=== PATIENT | female | born 1940 | race Caucasian/White ===

== ENCOUNTER 2018-08-17 15:01 | Inpatient (IN) ==
[2018-08-17] MEDS ORDERED: Ampicillin/Sulbactam 1,500 MG in 0.9 % Sodium Chloride Mini Bag 100 ML IVPB ONE (15:34)
[2018-08-17] MEDS ORDERED: Tdap (Boostrix) Vaccine 0.5 ML SYRINGE IM ONE (15:35)
[2018-08-17] MEDS ORDERED: Acetaminophen 325 MG TABLET PO ONE (16:24)
--- NOTE | 2018-08-17 16:29 | Emergency Department Note ---
Disposition Clinical Impression: Cat bite Qualifiers: Encounter type: initial encounter Qualified Code(s): W55.01XA - Bitten by cat, initial encounter Cellulitis Qualifiers: Site of cellulitis: extremity Site of cellulitis of extremity: upper extremity Laterality: left Qualified Code(s): L03.114 - Cellulitis of left upper limb Disposition: Admitted As Inpatient Condition: Fair Time of Disposition: 17:30 General Adult HPI - General Chief complaint: ED Animal Bite Stated complaint: animal bite Time Seen by Provider: 08/17/18 15:23 Source: patient Mode of arrival: ambulatory Limitations: no limitations Nursing Notes Reviewed: Yes Vital Signs Reviewed: Yes - History of Present Illness HPI Narrative: 77-year-old female with significant past medical history insulin-dependent diabetes presenting to the emergency department after a cat scratch to her left hand. Patient states she brought a stray cat in to her home because she was concerned about the Possibly dying outside in the cold and the cat scratched her left hand. She went to an urgent care and they prescribed her doxycycline. She finished this medication yesterday but her hand remains red, swollen and tender to touch. Patient is also having active drainage from the site. Patient denies any fevers, chest pain, shortness of breath or abdominal pain with the symptoms. Pain Scale: 5 - Related Data Allergies Allergy/AdvReac Type Severity Reaction Status Date / Time lisinopril AdvReac Cough Verified 06/08/15 08:14 All systems ED: reviewed and negative except as stated. Constitutional: Denies: fever, chills Eyes: Reports: as per HPI ENT ED: Reports: as per HPI Cardiovascular: Denies: chest pain Respiratory: Reports: as per HPI Gastrointestinal: Denies: abdominal pain, nausea, vomiting Genitourinary: Reports: as per HPI Musculoskeletal: Reports: as per HPI Integumentary: Reports: abrasion Neurological: Reports: as per HPI Psychiatric: Reports: as per HPI Endocrine: Reports: as per HPI Hematological/Lymphatic: Reports: as per HPI Allergic/Immunologic: Reports: as per HPI Past Medical History - Past Medical History Attestation: Yes The following information was validated with the patient. Medical history: Reports: arthritis, CVA, diabetes, GERD, hyperlipidemia Psychiatric history: Reports: no psych history - Social History Smoking Status: Never smoker Alcohol use: Reports: none Drug use: Reports: none Physical Exam - General Limitations: no limitations General appearance: alert, in no apparent distress - Head Head exam: atraumatic, normocephalic, normal inspection - Eye Eye exam: Absent: scleral icterus - ENT ENT exam: mucous membranes moist - Neck Neck exam: Present: full ROM - Chest Chest inspection: Present: symmetric chest wall rise - Respiratory Respiratory exam: Present: normal lung sounds bilaterally. Absent: respiratory distress, wheezes - Cardiovascular Cardiovascular exam: Present: regular rate, normal rhythm, normal heart sounds - Abdominal Exam Abdominal exam: Present: soft, Non-Tender. Absent: distention, guarding, rebound - Extremities Exam Extremities exam: Present: full ROM, other (Redness, warmth or swelling noted to the dorsum aspect of the left hand. 2 open areas with one actively draining pus. Tenderness to palpation.) - Neurological Exam Neurological exam: Present: alert, oriented X3 - Psychiatric Psychiatric exam: Present: normal affect, normal mood - Skin Skin exam: Present: warm Course Course Narrative: 77-year-old female presenting with chief complaint of cat bite on left hand. In the room patient is alert and oriented 3 and hemodynamically stable. Afebrile. Left hand on the dorsum does show redness, swelling and pus. Concern is the patient did fail outpatient antibiotics. At this time will obtain basic labs, blood cultures and x-ray of the hand and provide her with IV Unasyn. Disposition most likely admission but pending results. Patient agrees with this plan. - Reevaluation(s) Reevaluation #1: Patient's laboratory analysis shows mild worsening kidney function but otherwise unchanged from baseline. Patient remains alert and oriented x 3 and hemodynamically stable in the room. At this time we will plan for admission for IV antibiotics.Xray shows soft tissue swelling but no concern for osteomyelitis. I spoke with the hospitalist media professional who agrees to accept the patient at this time. Vital Signs Temperature 98.4 F 08/17/18 15:13 Pulse Rate 88 08/17/18 15:13 Respiratory Rate 14 08/17/18 15:13 Blood Pressure 172/76 08/17/18 15:13 O2 Sat by Pulse Oximetry 97 08/17/18 15:13 Temperature 98.0 F 08/17/18 20:04 Pulse Rate 87 08/17/18 20:04 Respiratory Rate 15 08/17/18 20:04 Blood Pressure 155/79 08/17/18 20:04 O2 Sat by Pulse Oximetry 94 08/17/18 20:04 Oxygen Delivery Oxygen Delivery Room Air Medical Decision Making - Lab Data Result diagrams: 08/17/18 16:00 08/17/18 16:00 Lab Results 08/17/18 08/17/18 Range/Units 16:00 16:00 WBC 9.6 (4.3-11.1) K/mcL RBC 3.23 L (3.82-4.97) M/mcL Hgb 9.2 L (11.5-15.4) g/dL Hct 29.2 L (35.3-44.9) % MCV 90.4 (83.0-100.0) fL MCH 28.5 (28.0-33.3) pg MCHC 31.5 L (31.6-35.5) g/dL RDW 15.5 H (11.5-14.5) % Plt Count 291 (140-400) K/mcL MPV 9.6 (9.4-12.4) fL Immature Gran % 0.3 (0-4) % Seg Neutrophils % 55.7 % Lymphocytes % 20.6 % Monocytes % 13.4 % Eosinophils % 8.1 % Basophils % 1.9 % Neutrophils # 5.3 (1.6-8.9) K/mcL Lymphocytes # 2.0 (0.6-4.6) K/mcL Monocytes # 1.3 (0.0-1.3) K/mcL Eosinophils # 0.8 H (0.0-0.6) K/mcL Basophils # 0.2 (0.0-0.2) K/mcL Sodium 135 L (136-145) mEq/L Potassium 4.2 (3.5-5.1) mEq/L Chloride 104 (98-107) mEq/L Carbon Dioxide 25 (23-29) mEq/L BUN 14 (8-23) mg/dL Creatinine 1.25 H (0.60-1.20) mg/dL Est GFR ( Amer) 50 L (> 60) Est GFR (Non-Af Amer) 42 L (> 60) BUN/Creatinine Ratio 11 (6-26) Glucose 220 H (70-105) mg/dL Calculated Osmolality 287 (280-300) Calcium 9.2 (8.6-10.3) mg/dL Attestation Statement - Attestation Attestation: I, Marv Luque, examined this patient and my medical decision-making was reviewed with the RN PATIENT SERVICES/PA/Advanced Practice Nurse/Resident Physician. I agree with the documented findings, disposition and treatment plan as described except to the extent set forth below. 77-year-old female presents emergency Department with concerns of pain to the left hand. Patient states she tried taking and a stray cat, it bit her. She started having increased swelling and pain to the hand. She took a course of outpatient antibiotics and it improved slightly but did not resolve. She presents for further evaluation. Patient was started on Unasyn in the emergency department and felt comfortable with the plan for admission to the hospital. Dr. Coelho was consulted regarding the patient's case presentation.
[2018-08-17 16:38] LABS: Basophils # 0.2 K/mcL (0.0-0.2); Basophils % 1.9 %; Eosinophils # 0.8 K/mcL (0.0-0.6); Eosinophils % 8.1 %; Hematocrit 29.2 % (35.3-44.9); Hemoglobin 9.2 g/dL (11.5-15.4); Immature Granulocytes % 0.3 % (0-4); Lymphocytes % 20.6 %; Mean Corpuscular HGB Conc 31.5 g/dL (31.6-35.5); Mean Corpuscular Hemoglobin 28.5 pg (28.0-33.3); Mean Corpuscular Volume 90.4 fL (83.0-100.0); Mean Platelet Volume 9.6 fL (9.4-12.4); Monocytes # 1.3 K/mcL (0.0-1.3); Monocytes % 13.4 %; Neutrophils # 5.3 K/mcL (1.6-8.9); Platelet Count 291 K/mcL (140-400); Red Blood Count 3.23 M/mcL (3.82-4.97); Red Cell Distribution Width 15.5 % (11.5-14.5); Segmented Neutrophils % 55.7 %
[2018-08-17 16:59] LABS: Calcium 9.2 mg/dL (8.6-10.3); Potassium 4.2 mEq/L (3.5-5.1)
--- NOTE | 2018-08-17 17:23 | Internal Med History&Physical ---
<Tommy Bennett Claritza - Last Filed: 08/17/18 19:02> Date of Encounter: 08/17/18 Internal Medicine - H&P: HPI History of present illness: Ms. Casper is a 77 year old female Past Med Surg Social Fam HX - Family History Mother Adopted: No Hx Family Endocrine Disorder: Yes (DM) Internal Medicine - H&P: Meds Allergy/AdvReac Type Severity Reaction Status Date / Time lisinopril AdvReac Cough Verified 06/08/15 08:14 All Systems PM: A 10-system review of systems was performed and is negative for pertinent findings except as documented above in the HPI. - Constitutional Vitals: Temp Pulse Resp BP Pulse Ox 98.4 F 88 14 148/56 97 08/17/18 15:13 08/17/18 15:13 08/17/18 15:13 08/17/18 16:29 08/17/18 15:13 Internal Med - H&P Results - Labs CBC & Chem 7: 08/17/18 16:00 08/17/18 16:00 Labs: Short CBC 08/17/18 Range/Units 16:00 WBC 9.6 (4.3-11.1) K/mcL Hgb 9.2 L (11.5-15.4) g/dL Hct 29.2 L (35.3-44.9) % Plt Count 291 (140-400) K/mcL Neutrophils # 5.3 (1.6-8.9) K/mcL BMP 08/17/18 16:00 Sodium 135 L Potassium 4.2 Chloride 104 Carbon Dioxide 25 BUN 14 Creatinine 1.25 H Glucose 220 H Calcium 9.2 - Impressions ITS Impressions Hand X-Ray 08/17/18 15:54 IMPRESSION: Osteoarthrosis. Mild soft tissue swelling. D/ / Amy Turcios MD / Amy Turcios MD Interpreting Provider: Amy Turcios MD - Assessment and plan (1) Cellulitis Current Visit: Yes Status: Acute Qualifiers: Site of cellulitis: extremity Site of cellulitis of extremity: upper extremity Laterality: left Qualified Code(s): L03.114 - Cellulitis of left upper limb (2) Cat bite Current Visit: Yes Status: Acute Qualifiers: Encounter type: initial encounter Qualified Code(s): W55.01XA - Bitten by cat, initial encounter (3) Cat scratch of hand Current Visit: Yes Status: Acute Qualifiers: Encounter type: initial encounter Laterality: left Qualified Code(s): S60.512A - Abrasion of left hand, initial encounter; W55.03XA - Scratched by cat, initial encounter (4) Diabetes Current Visit: Yes Status: Chronic Qualifiers: Diabetes mellitus type: type 2 Diabetes mellitus usp insulin use: with rn long term care use Diabetes mellitus complication status: with hyperglycemia Qualified Code(s): E11.65 - Type 2 diabetes mellitus with hyperglycemia; Z79.4 - [facility] (current) use of insulin - Time Spent With Patient Total time spent is greater than 50% in coordination of care (as documented) at patient's floor/unit and/or counseling patient: - Attending Attestation I examined this patient and my medical decision-making was reviewed with the Resident Physician on 08/17/18. I agree with the documented findings, disposition and treatment plan as described except to the extent set forth below. Ms Casper is a 77 y/o female with hx of DM presented with swelling and drainage L hand. Recent cat scratch. Completed 10 days of Doxycycline. Exam Alert comfortable Mucus membranes dry Heart reg No wheeze abd soft L hand with erythema and drainage. I/P 1. Cellulitis L hand - Unasyn. One dose Vanc 2. DM Further diagnoses and plan as above. <Quincy Howell - Last Filed: 08/17/18 19:41> Date of Encounter: 08/17/18 Time of Encounter: 17:22 Internal Medicine - H&P: HPI Chief complaint: Cat scratch Admitted From: Emergency Dept Plans for Post Hospital Care: Home History of present illness: Ms. Casper is a 77 year old female with past medical history of CVA, diabetes, GERD, hyperlipidemia, anemia, pulmonary fibrosis. She presents the emergency room with complaint of a wound on her left hand. Patient states that on 08/06/18 she was trying to bring a stray cat inside to protect it from the cold and was subsequently scratched. Scratched on the left dorsum of the hand. Patient states she went to urgent care the next day and received a course of doxycycline and completed a 10 day course. Patient states that this did help some of the erythema however she has continued to notice some erythema, purulent drainage, foul smell. She denies any symptoms of fevers, chills, nausea, vomiting, chest pain, shortness of breath, weakness, numbness, tingling. She is able to move her hand and make a fist. She reportedly previously had some swelling in her digits as well as erythema extending from her fingers to her wrist however this is improved since taking the doxycycline. She has been taking Tylenol for her pain with good relief. Upon presentation to the emergency room, vital signs were significant for a bloo d pressure 172/76 which was repeated improved to 148/56. History obtained and showed no evidence of leukocytosis at 9.6, baseline anemia at 9.2 hemoglobin, sodium 135, BUN/creatinine/creatinine of 14/1.25 which is near baseline. X-ray of the head was obtained and shows soft tissue swelling with osteoarthrosis. She was given a dose of Unasyn and a tetanus shot. Blood cultures were obtained Past medical history as above Past surgical history: Denies Social history: Never smoker, denies alcohol or drug use Family history: Noncontributory Past Med Surg Social Fam HX - Past Medical History Medical history: arthritis, CVA, diabetes, GERD, hyperlipidemia Additional medical history: watermelon stomach,hiatial hernia,gastritis,iron def anemia,pulmonary fibrosis Psychiatric history: no psych history - Past Surgical History Additional surgical history: knee replacement,hysterectomy,tips procedure, - Social History Smoking Status: Never smoker Alcohol use: none Drug use: none All Systems PM: A 10-system review of systems was performed and is negative for pertinent findings except as documented above in the HPI. Review of systems: - Constitutional: Denies fevers, chills, weight loss, generalized fatigue - CVS: Chronic edema Denies chest pain, palpitations, ZACARIAS, - Pulm: Denies SOB, cough, sputum, wheezing - GI: Denies abdominal pain, anorexia, nausea, vomiting, diarrhea, constipation, melena - : Denies dysuria, increased frequency, urgency, hematuria, - MSK: some hand pain. Denies joint pain, limited ROM - Skin: Admits to left dorsum hand erythemaDenies rashes, ulcers, color changes, - Neuro: Denies GUAJARDO, paresthesias, focal deficits, ataxia - Constitutional Vitals: Temp Pulse Resp BP Pulse Ox 98.4 F 88 14 148/56 97 08/17/18 15:13 08/17/18 15:13 08/17/18 15:13 08/17/18 16:29 08/17/18 15:13 Exam: Gen.: Vitals noted. No acute distress. AAOx3, resting comfortably in bed. HEENT: PERRL/EOMI, oropharynx clear, Normocephalic, atraumatic, MMM Cardiac: RRR, subtle systolic murmur, +S1/S2, 3+ pitting BLE edema Pulmonary: CTA bilaterally, no wheezes, rales or rhonchi, equal chest expansion, unlabored breathing Abdomen: soft, nontender, BS noted, no guarding, no palpable HSM Skin: warm and dry, left hand with dorsum showing erythema with 2 puncture wounds. Purulent drainage present in one of the wounds. No proximal spreading. Distal pulses and sensation intact. MSK: ROM intact, no joint swelling noted, gait no assessed while in bed. Non tender calf or clubbing Neuro: A&Ox3, moves all extremities, no focal deficits, sensation intact Psych: Appropriate mood and behavior, AOx3 Internal Med - H&P Results - Labs CBC & Chem 7: 08/17/18 16:00 08/17/18 16:00 Labs: Short CBC 08/17/18 Range/Units 16:00 WBC 9.6 (4.3-11.1) K/mcL Hgb 9.2 L (11.5-15.4) g/dL Hct 29.2 L (35.3-44.9) % Plt Count 291 (140-400) K/mcL Neutrophils # 5.3 (1.6-8.9) K/mcL BMP 08/17/18 16:00 Sodium 135 L Potassium 4.2 Chloride 104 Carbon Dioxide 25 BUN 14 Creatinine 1.25 H Glucose 220 H Calcium 9.2 - Impressions ITS Impressions Hand X-Ray 08/17/18 15:54 IMPRESSION: Osteoarthrosis. Mild soft tissue swelling. D/ / Amy Turcios MD / Amy Turcios MD Interpreting Provider: Amy Turcios MD - Assessment and plan (1) Cat scratch of hand Current Visit: Yes Status: Acute Assessment and plan: - Patient reports cat scratch on her left hand on 08/06/18 - Patient did not complete a ten-day course of doxycycline as prescribed by urgent care - Despite antibiotic course, patient reports continued erythema, swelling, purulent drainage - Patient will require IV antibiotics. Started on Unasyn and one dose vancomycin day #1 - Orthopedics was consulted and will see the patient in the morning. - X-ray of the left hand shows soft tissue swelling as well as osteoarthropathy - Sensation, distal pulses intact. No axillary lymphadenopathy. No concerns at this time for deep-seated infection Plan - Continue IV antibiotics as above, day #1. Some suspicion for Bartonella henselae- consider azithromycin if worsens - We will obtain wound and blood cultures, de-escalate antibiotics as appropriate - Consult orthopedic, appreciate recommendations - We will continue monitor for further need of imaging including CT to rule out abscess however patient has full range of motion and no deficits at this time. Qualifiers: Encounter type: initial encounter Laterality: left Qualified Code(s): S60.512A - Abrasion of left hand, initial encounter; W55.03XA - Scratched by cat, initial encounter (2) Cellulitis Current Visit: Yes Status: Acute Assessment and plan: As above Qualifiers: Site of cellulitis: extremity Site of cellulitis of extremity: upper extremity Laterality: left Qualified Code(s): L03.114 - Cellulitis of left upper limb (3) Pulmonary fibrosis Current Visit: Yes Status: Chronic Assessment and plan: - Patient reports a chronic history of pulmonary fibrosis - Patient reports when necessary oxygen use at home - We will continuously and oxygen while inpatient - Continue management as outpatient (4) Anemia Current Visit: Yes Status: Chronic Assessment and plan: - H/H on presentation of 9.2/29.2 - Baseline hemoglobin appears to be between 10 and 12 - Patient is asymptomatic, no indications for transfusion - We will continue to monitor at this time Qualifiers: Anemia type: iron deficiency Iron deficiency anemia type: unspecified iron deficiency Qualified Code(s): D50.9 - Iron deficiency anemia, unspecified (5) Diabetes Current Visit: Yes Status: Chronic Assessment and plan: - Patient reports excellent control - BS on admission elevated at 220, may be elevated secondary to infection - SSI - ADA diet Qualifiers: Diabetes mellitus type: type 2 Diabetes mellitus rn long term care insulin use: with usp use Diabetes mellitus complication status: with hyperglycemia Qualified Code(s): E11.65 - Type 2 diabetes mellitus with hyperglycemia; Z79.4 - terminal worker (current) use of insulin (6) DVT prophylaxis Current Visit: Yes Status: Acute Assessment and plan: - Subcutaneous heparin - Time Spent With Patient Total time spent is greater than 50% in coordination of care (as documented) at patient's floor/unit and/or counseling patient:
[2018-08-17] MEDS ORDERED: Naloxone 0.4 MG/ML INJ IVP PRN (17:58)
[2018-08-17] MEDS ORDERED: *HR* HYDROcodone/Acet 5/325 mg TABLET PO PRN (17:58)
[2018-08-17] MEDS ORDERED: D5% in Water 1,000 ML IVC PRN (18:07)
[2018-08-17] MEDS ORDERED: Dextrose Gel 15 GM/37.5 ML TUBE PO PRN ×2 (18:07)
[2018-08-17] MEDS ORDERED: *HR* Dextrose 50 % in Water (Syg) 50 ML SYRINGE IVP PRN (18:07)
[2018-08-17] MEDS: Insulin LISPRO 300 UNITS/3 ML VIAL SQ SCH (21:24)
[2018-08-17] MEDS: Ampicillin/Sulbactam 1,500 MG in 0.9 % Sodium Chloride Mini Bag 100 ML IVPB SCH (23:56)
[2018-08-18] MEDS: Ampicillin/Sulbactam 1,500 MG in 0.9 % Sodium Chloride Mini Bag 100 ML IVPB SCH ×4 (05:30→23:48)
[2018-08-18] MEDS: *HR* Heparin 5,000 UNIT/ML VIAL SQ SCH ×2 (05:33→18:38)
[2018-08-18] MEDS ORDERED: Ipratropium/Albuterol Neb 3 ML IH PRN (05:48)
[2018-08-18] MEDS ORDERED: hydrALAZINE 10 MG TABLET PO PRN (07:36)
[2018-08-18] MEDS: Insulin LISPRO 300 UNITS/3 ML VIAL SQ SCH ×4 (08:11→20:23)
[2018-08-18 08:23] LABS: Basophils # 0.2 K/mcL (0.0-0.2); Basophils % 1.9 %; Eosinophils # 0.7 K/mcL (0.0-0.6); Eosinophils % 6.9 %; Hemoglobin 9.8 g/dL (11.5-15.4); Immature Granulocytes % 0.5 % (0-4); Lymphocytes # 1.7 K/mcL (0.6-4.6); Mean Corpuscular HGB Conc 31.6 g/dL (31.6-35.5); Mean Corpuscular Hemoglobin 28.5 pg (28.0-33.3); Mean Corpuscular Volume 90.1 fL (83.0-100.0); Mean Platelet Volume 9.7 fL (9.4-12.4); Monocytes # 1.1 K/mcL (0.0-1.3); Monocytes % 11.2 %; Neutrophils # 6.1 K/mcL (1.6-8.9); Platelet Count 290 K/mcL (140-400); Red Blood Count 3.44 M/mcL (3.82-4.97); Red Cell Distribution Width 15.3 % (11.5-14.5); Segmented Neutrophils % 62.5 %
[2018-08-18 08:42] LABS: Calcium 9.2 mg/dL (8.6-10.3); Potassium 4.5 mEq/L (3.5-5.1)
--- NOTE | 2018-08-18 08:51 | Internal Med Progress Note ---
<Quincy Howell - Last Filed: 08/18/18 08:46> Hospitalist Progress Note - Encounter Date of Encounter: 08/18/18 Time of Encounter: 08:05 - Subjective Interval History: Patient was seen and examined at bedside this morning. She states that overall she is doing very well. She is denying any pain in her hand as well as further erythema, redness, fevers, chills. Her hand is currently wrapped and she has not looked at the wound but states it itches. She has not noticed any drainage. - Exam Vitals: Temp Pulse Resp BP Pulse Ox 97.6 F 80 17 155/76 99 08/18/18 06:54 08/18/18 06:54 08/18/18 06:54 08/18/18 06:54 08/18/18 06:54 Exam: Gen.: Vitals noted. No acute distress. AAOx3, resting comfortably in bed. HEENT: PERRL/EOMI, oropharynx clear, Normocephalic, atraumatic, MMM Cardiac: RRR, subtle systolic murmur, +S1/S2, 3+ pitting BLE edema Pulmonary: CTA bilaterally, no wheezes, rales or rhonchi, equal chest expansion, unlabored breathing Abdomen: soft, nontender, BS noted, no guarding, no palpable HSM Skin: warm and dry, left hand wrapped with no evidence of surrounding erythema, edema, drainage. No proximal spreading. Distal pulses and sensation intact. MSK: ROM intact, no joint swelling noted, gait no assessed while in bed. Non tender calf or clubbing Neuro: A&Ox3, moves all extremities, no focal deficits, sensation intact Psych: Appropriate mood and behavior, AOx3 - Assessment and Plan (1) Cat scratch of hand Current Visit: Yes Status: Acute Assessment and Plan: - Patient reports cat scratch on her left hand on 08/06/18 - Patient did not complete a ten-day course of doxycycline as prescribed by urgent care - Despite antibiotic course, patient reports continued erythema, swelling, purulent drainage - Patient will require IV antibiotics. Started on Unasyn and one dose vancomycin day #2 - Orthopedics was consulted and will see the patient in the morning. - X-ray of the left hand shows soft tissue swelling as well as osteoarthropathy - Sensation, distal pulses intact. No axillary lymphadenopathy. No concerns at this time for deep-seated infection Plan - Continue IV antibiotics as above, day #2. Some suspicion for Bartonella henselae- consider azithromycin if worsens - Completed one time dose of vancomycin - We will obtain wound and blood cultures, de-escalate antibiotics as ap propriate - Consult orthopedic, appreciate recommendations - We will continue monitor for further need of imaging including CT to rule out abscess however patient has full range of motion and no deficits at this time. (2) Cellulitis Current Visit: Yes Status: Acute Assessment and Plan: as above (3) Pulmonary fibrosis Current Visit: Yes Status: Chronic Assessment and Plan: - Patient reports a chronic history of pulmonary fibrosis - Patient reports when necessary oxygen use at home - We will continue PRN oxygen while inpatient - Continue management as outpatient (4) Anemia Current Visit: Yes Status: Chronic Assessment and Plan: - H/H on presentation of ..2, stable at hgb 9.8 today - Baseline hemoglobin appears to be between 10 and 12 - Patient is asymptomatic, no indications for transfusion - We will continue to monitor at this time (5) Diabetes Current Visit: Yes Status: Chronic Assessment and Plan: - Patient reports excellent control - BS on admission elevated at 220, may be elevated secondary to infection - BS today have been very well controlled in low 100s - SSI - ADA diet (6) DVT prophylaxis Current Visit: Yes Status: Acute Assessment and Plan: subcutaneous heparin - Time Spent with Patient Total time spent is greater than 50% in coordination of care (as documented) at patient's floor/unit and/or counseling patient: Internal Medicine: Result - Labs CBC & Chem 7: 08/18/18 07:35 08/18/18 07:35 Labs: Short CBC 08/17/18 08/18/18 Range/Units 16:00 07:35 WBC 9.6 9.7 (4.3-11.1) K/mcL Hgb 9.2 L 9.8 L (11.5-15.4) g/dL Hct 29.2 L 31.0 L (35.3-44.9) % Plt Count 291 290 (140-400) K/mcL Neutrophils # 5.3 6.1 (1.6-8.9) K/mcL BMP 08/17/18 08/18/18 16:00 07:35 Sodium 135 L 137 Potassium 4.2 4.5 Chloride 104 106 Carbon Dioxide 25 25 BUN 14 12 Creatinine 1.25 H 1.08 Glucose 220 H 114 H Calcium 9.2 9.2 - Impressions Impressions Hand X-Ray 08/17/18 15:54 IMPRESSION: Osteoarthrosis. Mild soft tissue swelling. D/ / Amy Turcios MD / Amy Turcios MD Interpreting Provider: Amy Turcios MD Consult Discharge Plan - Plan Referrals: Leonard Trinidad MD [Primary Care Provider] - <Tommy Bennett - Last Filed: 08/18/18 14:42> Hospitalist Progress Note - Encounter Date of Encounter: 08/18/18 - Exam Vitals: Temp Pulse Resp BP Pulse Ox 98 F 81 17 119/65 94 08/18/18 10:50 08/18/18 10:50 08/18/18 10:50 08/18/18 10:50 08/18/18 10:50 - Assessment and Plan (1) Cellulitis Current Visit: Yes Status: Acute (2) Cat bite Current Visit: Yes Status: Acute (3) Cat scratch of hand Current Visit: Yes Status: Acute (4) Diabetes Current Visit: Yes Status: Chronic - Time Spent with Patient Total time spent is greater than 50% in coordination of care (as documented) at patient's floor/unit and/or counseling patient: Internal Medicine: Result - Labs CBC & Chem 7: 08/18/18 07:35 08/18/18 07:35 Labs: Short CBC 08/17/18 08/18/18 Range/Units 16:00 07:35 WBC 9.6 9.7 (4.3-11.1) K/mcL Hgb 9.2 L 9.8 L (11.5-15.4) g/dL Hct 29.2 L 31.0 L (35.3-44.9) % Plt Count 291 290 (140-400) K/mcL Neutrophils # 5.3 6.1 (1.6-8.9) K/mcL BMP 08/17/18 08/18/18 16:00 07:35 Sodium 135 L 137 Potassium 4.2 4.5 Chloride 104 106 Carbon Dioxide 25 25 BUN 14 12 Creatinine 1.25 H 1.08 Glucose 220 H 114 H Calcium 9.2 9.2 - Impressions Impressions Hand X-Ray 08/17/18 15:54 IMPRESSION: Osteoarthrosis. Mild soft tissue swelling. D/ / Amy Turcios MD / Amy Turcios MD Interpreting Provider: Amy Turcios MD - Attending Attestation I examined this patient and my medical decision-making was reviewed with the Resident Physician on 08/18/18. I agree with the documented findings, disposition and treatment plan as described except to the extent set forth below. Ms Casper is currently admitted for cellulitis, ? abscess due to cat scratch/bite. She remains moderate to high risk due to potential for worsening clinical status. Ms Casper is feeling OK. Dressing still on hand. No fever or chills. No CP or SOB. No significant pain. Exam alert Comfortable Mucus membranes dry Dressing intact Heart reg and not tachy No wheeze ABd soft No edema I/P 1. Cellulitis L hand - on IV abx. Failed 2 abx as outpatient. 2. Cat bite/scratch 3. DM Further diagnoses and plan as above. <Quincy Howell - Last Filed: 08/18/18 08:46> (1) Cat scratch of hand Qualifiers: Encounter type: initial encounter Laterality: left Qualified Code(s): S60.512A - Abrasion of left hand, initial encounter; W55.03XD - Scratched by cat, subsequent encounter (2) Cellulitis Qualifiers: Site of cellulitis: extremity Site of cellulitis of extremity: upper extremity Laterality: left Qualified Code(s): L03.114 - Cellulitis of left upper limb (4) Anemia Qualifiers: Anemia type: iron deficiency Iron deficiency anemia type: unspecified iron deficiency Qualified Code(s): D50.9 - Iron deficiency anemia, unspecified (5) Diabetes Qualifiers: Diabetes mellitus type: type 2 Diabetes mellitus fpc insulin use: with fpc use Diabetes mellitus complication status: with hyperglycemia Qualified Code(s): E11.65 - Type 2 diabetes mellitus with hyperglycemia; Z79.4 - intermediate accountant (current) use of insulin <Tommy Bennett - Last Filed: 08/18/18 14:42> (1) Cellulitis Qualifiers: Site of cellulitis: extremity Site of cellulitis of extremity: upper extremity Laterality: left Qualified Code(s): L03.114 - Cellulitis of left upper limb (2) Cat bite Qualifiers: Encounter type: subsequent encounter Qualified Code(s): W55.01XD - Bitten by cat, subsequent encounter (3) Cat scratch of hand Qualifiers: Encounter type: subsequent encounter Laterality: left Qualified Code(s): S60.512D - Abrasion of left hand, subsequent encounter; W55.03XD - Scratched by cat, subsequent encounter (4) Diabetes Qualifiers: Diabetes mellitus type: type 2 Diabetes mellitus buttermaker insulin use: with fpc use Diabetes mellitus complication status: with hyperglycemia Qualified Code(s): E11.65 - Type 2 diabetes mellitus with hyperglycemia; Z79.4 - intermediate accountant (current) use of insulin
[2018-08-18] MEDS: Acetaminophen 325 MG TABLET PO PRN (11:59)
--- NOTE | 2018-08-18 14:50 | Orthopedic Consult Note ---
Date of Encounter: 08/18/18 Time of Encounter: 14:48 History of Present Illness Chief complaint: Left hand pain and swelling HPI: Ms. Casper is a 77 year old [id number] female who sustained cat bites and scratches to her left hand on August 062018. Patient states that she a neighborhood cat into her home for fear the the cold weather was too much with a cat. Initially the cat did not appear to be of any concern. The cat however turned on her and she sustained some scratches and bites to the left hand. She cleaned with alcohol. She then presented to an urgent care the next day where she was prescribed 10 days of doxycycline. She states that she finished the medication but the hand continued be painful and swollen. She presented to the emergency room and [facility] for further evaluation and management. I reviewed the patient's completed history and physical as well as the completed medical record. Pertinent orthopedic examination reveals a pleasant 77-year-old woman in no acute distress. Examination of left upper extremity reveals mild edema in the fingers. Hand motion is unremarkable. On the dorsum of the wrist are numerous scabbed over areas with a small area approximately 5 mm in diameter on the dorsal central aspect of the hand that is draining some purulent material. Neurovascular exam is intact. No evidence of epitrochlear or axillary lymph nodes. White blood cell count is normal. Platelet count unremarkable. Hemoglobin approximately 10 g. Blood sugars are about 200. Renal function is grossly intact. Wound culture is not reported this time X-rays of the left hand and wrist revealed marked arthritic changes especially involving the interphalangeal joints of the fingers, the basal joint of the thumb and the radial carpal joint. No evidence of osseous destruction is seen. Impression: Cat bite and scratch injuries to left upper extremity Recommendation: Recommend continue with intravenous antibiotics. Unfortunately, without knowing it was a cat scratch or bite injury would have to cover for both potential primary organisms of concern. If this is purely a scratch injury, then Bartonella henselae BR predominant organism of concern and azithromycin BR drug of choice. If this is a cat bite then Pasteurella multocida would be the major concern and in this case UniSyn oral Augmentin would be the top choice. Always have to consider MRSA in coverage. At this time I do not see any indication for a formal incision and drainage as the wound is draining. If the patient does not see resolution in 24-48 hours and it appears to be a non- draining abscess, then incision and drainage may be required. Thank you very much for allowing me to see and care for Mrs. Casper. Valeriano Bazan, Past Med Surg Social Fam HX - Past Medical History Medical history: arthritis, CVA, diabetes, GERD, hyperlipidemia Additional medical history: watermelon stomach,hiatial hernia,gastritis,iron def anemia,pulmonary fibrosis Psychiatric history: no psych history - Past Surgical History Additional surgical history: knee replacement,hysterectomy,tips procedure, - Social History Smoking Status: Never smoker Smokeless Tobacco Status: No Alcohol use: none Drug use: none - Family History Mother Adopted: No Hx Family Endocrine Disorder: Yes (DM) Medications and Allergies Allergy/AdvReac Type Severity Reaction Status Date / Time lisinopril AdvReac Cough Verified 06/08/15 08:14 All Systems Reviewed: The remainder of the systems were reviewed and are negative Physical Exam - Constitutional Vitals: Temp Pulse Resp BP Pulse Ox 98 F 81 17 119/65 94 08/18/18 10:50 08/18/18 10:50 08/18/18 10:50 08/18/18 10:50 08/18/18 10:50 Results - Labs Result Diagrams: 08/18/18 07:35 08/18/18 07:35 Labs: Abnormal lab results RBC 3.44 M/mcL (3.82-4.97) L 08/18/18 07:35 Hgb 9.8 g/dL (11.5-15.4) L 08/18/18 07:35 Hct 31.0 % (35.3-44.9) L 08/18/18 07:35 RDW 15.3 % (11.5-14.5) H 08/18/18 07:35 Eosinophils # 0.7 K/mcL (0.0-0.6) H 08/18/18 07:35 Est GFR (Non-Af Amer) 49 (> 60) L 08/18/18 07:35 Glucose 114 mg/dL (70-105) H 08/18/18 07:35 POC Glucose 192 mg/dL (70-99) H 08/18/18 10:51 H & H 08/17/18 08/18/18 Range/Units 16:00 07:35 Hgb 9.2 L 9.8 L (11.5-15.4) g/dL Hct 29.2 L 31.0 L (35.3-44.9) % All other labs normal. - Diagnostic results Wrist/Hand x-ray: image reviewed Consult Discharge Plan - Plan Referrals: Leonard Trinidad MD [Primary Care Provider] -
[2018-08-18] MEDS: Azithromycin 500 MG in D5% in Water 250 ML IVPB SCH (17:00)
[2018-08-18] MEDS: Furosemide 40 MG TABLET PO SCH (20:25)
[2018-08-18] MEDS: Gabapentin 100 MG CAPSULE PO SCH (20:25)
[2018-08-18] MEDS ORDERED: Insulin DETEMIR 100 UNIT/ML X5UNITS SQ SCH (21:00)
[2018-08-18] MEDS ORDERED: NON-FORMULARY MEDICATION 1 EACH EACH (Insulin Glargine,Hum.Rec.Anlog [Basaglar Kwikpen U-1 SQ SCH (21:00)
--- NOTE | 2018-08-19 06:03 | Event Note ---
Date of Encounter: 08/19/18 Time of Encounter: 05:55 Alerted by patient's nurse KENYON Cohen that patient's blood glucose this morning was 46. Nurse reported patient was alert and was given 30 gm of gluctose and 8 oz of OJ. Recheck showed BG still 46. Pt. given 8 oz more of OJ. Recheck of BG was 50. Pt. given IVP 25 ml dextrose. BG improved to 120. Next recheck 164. Nurse instructed to check BG Q15MIN x4 and report results to me and continue to monitor pt. closely.
[2018-08-19] MEDS: *HR* Heparin 5,000 UNIT/ML VIAL SQ SCH ×2 (06:09→17:10)
[2018-08-19] MEDS: Ampicillin/Sulbactam 1,500 MG in 0.9 % Sodium Chloride Mini Bag 100 ML IVPB SCH ×3 (06:09→17:07)
[2018-08-19] MEDS: Insulin LISPRO 300 UNITS/3 ML VIAL SQ SCH ×7 (07:23→21:13)
[2018-08-19] MEDS: Furosemide 40 MG TABLET PO SCH ×2 (07:24→16:36)
[2018-08-19] MEDS ORDERED: Aminoglycoside Consult 1 EACH MC ONE (07:44)
[2018-08-19] MEDS ORDERED: ALPRAZolam 0.25 MG TABLET PO PRN (09:09)
--- NOTE | 2018-08-19 09:11 | Internal Med Progress Note ---
<Quincy Howlel - Last Filed: 08/19/18 13:18> Hospitalist Progress Note - Encounter Date of Encounter: 08/19/18 Time of Encounter: 08:10 - Subjective Interval History: Patient was seen and examined at bedside this morning. She states she is not doing very well this morning. She states that she feels "terrible". When asked to elaborate, she states that she has not been eating well due to her hand bandage and continue to receive insulin. She did become hypoglycemic overnight but has responded to dextrose. She states that she feels "numb inside". - Exam Vitals: Temp Pulse Resp BP Pulse Ox 97.6 F 80 18 149/71 99 08/19/18 05:33 08/19/18 05:33 08/19/18 05:33 08/19/18 05:33 08/19/18 05:33 Exam: Gen.: Vitals noted. No acute distress. AAOx3, resting comfortably in bed. Appears anxious and disheveled this morning HEENT: PERRL/EOMI, oropharynx clear, Normocephalic, atraumatic, MMM Cardiac: RRR, subtle systolic murmur, +S1/S2, 3+ pitting BLE edema Pulmonary: CTA bilaterally, no wheezes, rales or rhonchi, equal chest expansion, unlabored breathing Abdomen: soft, nontender, BS noted, no guarding, no palpable HSM Skin: warm and dry, left hand wrapped with no evidence of surrounding erythema, edema, drainage. No proximal spreading. Distal pulses and sensation intact. MSK: ROM intact, no joint swelling noted, gait no assessed while in bed. Non tender calf or clubbing Neuro: A&Ox3, moves all extremities, no focal deficits, sensation intact Psych: Appropriate mood and behavior, AOx3 - Assessment and Plan (1) Cat scratch of hand Current Visit: Yes Status: Acute Assessment and Plan: - Patient reports cat scratch on her left hand on 08/06/18 - Patient did not complete a ten-day course of doxycycline as prescribed by urgent care - Despite antibiotic course, patient reports continued erythema, swelling, purulent drainage - Patient will require IV antibiotics. Started on Unasyn and one dose vancomycin - Orthopedics was consulted and will see the patient in the morning. - X-ray of the left hand shows soft tissue swelling as well as osteoarthropathy - Sensation, distal pulses intact. No axillary lymphadenopathy. No concerns at this time for deep-seated infection - Preliminary cultures included negative blood cultures on 08/17/18 negative for growth 2 - Wound culture from left hand pulmonary shows no growth on 08/18/18 - Current antibiotics include Unasyn, vancomycin, azithromycin per orthopedic recommendations Plan - Continue IV antibiotics as above, day #3. - We will obtain wound and blood cultures, de-escalate antibiotics as appropriate - Consult orthopedic, appreciate recommendations- no plans for surgical intervention at this time - We will continue monitor for further need of imaging including CT to rule out abscess however patient has full range of motion and no deficits at this time. (2) Cellulitis Current Visit: Yes Status: Acute Assessment and Plan: As above (3) Pulmonary fibrosis Current Visit: Yes Status: Chronic Assessment and Plan: - Patient reports a chronic history of pulmonary fibrosis - Patient reports when necessary oxygen use at home - We will continue PRN oxygen while inpatient - Continue management as outpatient (4) Anemia Current Visit: Yes Status: Chronic Assessment and Plan: - H/H on presentation of 9.2/29.2, stable at hgb 9.8 most recently - Baseline hemoglobin appears to be between 10 and 12 - Patient is asymptomatic, no indications for transfusion - We will continue to monitor at this time (5) Diabetes Current Visit: Yes Status: Chronic Assessment and Plan: - Patient reports excellent control - BS on admission elevated at 220, may be elevated secondary to infection - Became hypoglycemic overnight with blood sugar of 46. Thought to be secondary to decreased oral intake and low appetite. We will decrease basal insulin from 34 units to 20 units daily at bedtime - SSI - ADA diet (6) DVT prophylaxis Current Visit: Yes Status: Acute Assessment and Plan: Subcutaneous heparin - Time Spent with Patient Total time spent is greater than 50% in coordination of care (as documented) at patient's floor/unit and/or counseling patient: Internal Medicine: Result - Labs CBC & Chem 7: 08/18/18 07:35 08/18/18 07:35 Consult Discharge Plan - Plan Referrals: Leonrad Trinidad MD [Primary Care Provider] - <Tommy Bennett - Last Filed: 08/19/18 16:21> Hospitalist Progress Note - Encounter Date of Encounter: 08/19/18 - Exam Vitals: Temp Pulse Resp BP Pulse Ox 98.9 F 74 17 151/76 100 08/19/18 15:00 08/19/18 15:00 08/19/18 15:00 08/19/18 15:00 08/19/18 15:00 - Assessment and Plan (1) Cellulitis Current Visit: Yes Status: Acute (2) Cat bite Current Visit: Yes Status: Acute (3) Cat scratch of hand Current Visit: Yes Status: Acute (4) Diabetes Current Visit: Yes Status: Chronic (5) Hypoglycemia associated with type 2 diabetes mellitus Current Visit: Yes Status: Acute - Time Spent with Patient Total time spent is greater than 50% in coordination of care (as documented) at patient's floor/unit and/or counseling patient: Internal Medicine: Result - Labs CBC & Chem 7: 08/18/18 07:35 08/18/18 07:35 - Attending Attestation I examined this patient and my medical decision-making was reviewed with the Resident Physician on 08/19/18. I agree with the documented findings, disposition and treatment plan as described except to the extent set forth below. Ms Casper is currently admitted for L hand cellulitis. She remains moderate to high risk due to potential for worsening clinical status. Ms Casper had a rough night. She had her Lasix late and was urinating a lot. Then she became hypoglycemic. She is feeling badly overall right now. No CP or SOB. No cough. No fever or chills. Exam Alert. Tearful. Mucus membranes dry Heart not tachy now No wheeze ABd soft Dressing intact Moves all extremities I/P 1. Cat bite/scratch L hand with cellulitis - on IV abx at this time 2. DM with hypoglycemia - has not been eating well. Decrease basal insulin Further diagnoses and plan as above. <Quincy Howell - Last Filed: 08/19/18 13:18> (1) Cat scratch of hand Qualifiers: Encounter type: subsequent encounter Laterality: left Qualified Code(s): S60.512D - Abrasion of left hand, subsequent encounter; W55.03XD - Scratched by cat, subsequent encounter (2) Cellulitis Qualifiers: Site of cellulitis: extremity Site of cellulitis of extremity: upper extremity Laterality: left Qualified Code(s): L03.114 - Cellulitis of left upper limb (4) Anemia Qualifiers: Anemia type: iron deficiency Iron deficiency anemia type: unspecified iron deficiency Qualified Code(s): D50.9 - Iron deficiency anemia, unspecified (5) Diabetes Qualifiers: Diabetes mellitus type: type 2 Diabetes mellitus medicare sales representative insulin use: with medicare sales representative use Diabetes mellitus complication status: with hyperglycemia Qualified Code(s): E11.65 - Type 2 diabetes mellitus with hyperglycemia; Z79.4 - intermediate (current) use of insulin <Tommy Bennett - Last Filed: 08/19/18 16:21> (1) Cellulitis Qualifiers: Site of cellulitis: extremity Site of cellulitis of extremity: upper extremity Laterality: left Qualified Code(s): L03.114 - Cellulitis of left upper limb (2) Cat bite Qualifiers: Encounter type: subsequent encounter Qualified Code(s): W55.01XD - Bitten by cat, subsequent encounter (3) Cat scratch of hand Qualifiers: Encounter type: subsequent encounter Laterality: left Qualified Code(s): S60.512D - Abrasion of left hand, subsequent encounter; W55.03XD - Scratched by cat, subsequent encounter (4) Diabetes Qualifiers: Diabetes mellitus type: type 2 Diabetes mellitus medicare sales representative insulin use: with medicare sales representative use Diabetes mellitus complication status: with hyperglycemia Qualified Code(s): E11.65 - Type 2 diabetes mellitus with hyperglycemia; Z79.4 - chemistry tutor (current) use of insulin
[2018-08-19] MEDS: Acetaminophen 325 MG TABLET PO PRN (09:57)
[2018-08-19] MEDS: Azithromycin 500 MG in D5% in Water 250 ML IVPB SCH (15:34)
[2018-08-19 16:22] LABS: Hematocrit 28.6 % (35.3-44.9); Hemoglobin 8.7 g/dL (11.5-15.4); Mean Corpuscular HGB Conc 30.4 g/dL (31.6-35.5); Mean Corpuscular Hemoglobin 28.5 pg (28.0-33.3); Mean Corpuscular Volume 93.8 fL (83.0-100.0); Mean Platelet Volume 9.9 fL (9.4-12.4); Platelet Count 216 K/mcL (140-400); Red Blood Count 3.05 M/mcL (3.82-4.97); Red Cell Distribution Width 15.3 % (11.5-14.5)
--- NOTE | 2018-08-19 20:44 | Orthopedics Progress Note ---
Date of Encounter: 08/19/18 Time of Encounter: 20:40 Subjective Principal diagnosis: CAT bite/scratch injury left hand Interval history: 08/19/2018. Patient is having some itchiness over the dorsum of the hand. Dressings were changed today. Patient did have hypoglycemia this morning. Much better now. Vital signs are stable. Patient is afebrile. Scanty drainage from dorsum of left hand. Minor fluctuant area with expression of some seropurulent material. New dressing applied with minor tightness of the Coflex. White blood cell count is normal. Culture results are no growth on a preliminary interpretation of the wound. Impression: Cat bite/scratch infection left hand. Recommendation: Would continue with the current IV antibiotics pending the clinical response as well as the wound cultures. Difficult to discern whether this is a Bite or a cat scratch etiology with different primary organisms. I suspect that this is a cat bite concern due to pasteurella. If cultures are negative would focus on that as our primary etiology. Objective Vital signs: Vital Signs Temp Pulse Resp BP Pulse Ox 08/19/18 19:43 97.6 F 76 16 111/62 99 08/19/18 15:00 98.9 F 74 17 151/76 100 08/19/18 11:00 97.3 F L 80 18 148/73 100 08/19/18 05:33 97.6 F 80 18 149/71 99 08/18/18 23:46 97.6 F 82 16 126/74 95 Intake and Output 08/19/18 08/19/18 08/19/18 07:59 15:59 23:59 Intake Total 200 / 200 100 / 100 350 / 350 Output Total 0 / 0 Balance 200 / 200 100 / 100 350 / 350 Intake: IV Fluids 200 / 200 100 / 100 350 / 350 Unasyn 1,500 mg In 0.9 % Sodium 200 / 200 100 / 100 100 / 100 Chloride (Mini-Bag +) 100 ML @ 200 mls/hr IVPB Q6HR ELIOT Rx#: [id number] Zithromax 500 mg In Dextrose 5% 250 / 250 250 ML @ 252 mls/hr IVPB Q24H ELIOT Rx#:[id number] Oral 0 / 0 0 / 0 Output: Urine 0 / 0 Other: # Voids 1 1 Blood Glucose* 229 228 134 Incision: draining - Labs CBC & BMP: 08/19/18 16:11 08/18/18 07:35 Labs: Abnormal lab results RBC 3.05 M/mcL (3.82-4.97) L 08/19/18 16:11 Hgb 8.7 g/dL (11.5-15.4) L 08/19/18 16:11 Hct 28.6 % (35.3-44.9) L 08/19/18 16:11 MCHC 30.4 g/dL (31.6-35.5) L 08/19/18 16:11 RDW 15.3 % (11.5-14.5) H 08/19/18 16:11 Eosinophils # 0.7 K/mcL (0.0-0.6) H 08/18/18 07:35 Est GFR (Non-Af Amer) 49 (> 60) L 08/18/18 07:35 Glucose 114 mg/dL (70-105) H 08/18/18 07:35 POC Glucose 134 mg/dL (70-99) H 08/19/18 19:42 Vancomycin Trough 14 mcg/mL (5-10) H 08/19/18 16:11 Consult Discharge Plan - Plan Referrals: Leonard Trinidad MD [Primary Care Provider] -
[2018-08-19] MEDS: Gabapentin 100 MG CAPSULE PO SCH (21:16)
[2018-08-19] MEDS: Insulin DETEMIR 100 UNIT/ML X5UNITS SQ SCH (21:18)
[2018-08-20] MEDS: Ampicillin/Sulbactam 1,500 MG in 0.9 % Sodium Chloride Mini Bag 100 ML IVPB SCH ×2 (00:11→05:50)
--- NOTE | 2018-08-20 03:01 | Event Note ---
Date of Encounter: 08/20/18 Time of Encounter: 02:48 Alerted by patient's nurse KENYON Cohen that patient was the same patient who showed hypoglycemia the previous night. No evening insulin coverage was given and patient refused Levemir. Add 00:41, patient stated her blood sugar felt low. BG check was 75. Patient received 2 ice creams and a pack of jaelyn grahams. At 01:28, BG 66. Patient received 2 orange juices, 2 packs of sugar, and 3 packs of saltines with peanut butter. BG check 02:28 was 129. Patient ate almost entire dinner. Due to patient's chronic hypoglycemic episodes and brittle DM, pt. is going to require closer and more thorough management of her diabetes and insulin use daily as well as on discharge. Nurse instructed to continue monitoring pt. closely and alert me immediately of any adverse changes.
[2018-08-20] MEDS: *HR* Heparin 5,000 UNIT/ML VIAL SQ SCH ×2 (05:52→17:31)
--- NOTE | 2018-08-20 07:43 | Internal Med Progress Note ---
<Tommy Bennett - Last Filed: 08/20/18 15:30> Hospitalist Progress Note - Encounter Date of Encounter: 08/20/18 - Exam Vitals: Temp Pulse Resp BP Pulse Ox 97.8 F 77 15 148/79 98 08/20/18 14:09 08/20/18 14:09 08/20/18 14:09 08/20/18 14:09 08/20/18 14:09 - Assessment and Plan (1) Cellulitis Current Visit: Yes Status: Acute (2) Cat bite Current Visit: Yes Status: Acute (3) Cat scratch of hand Current Visit: Yes Status: Acute (4) Diabetes Current Visit: Yes Status: Chronic (5) Hypoglycemia associated with type 2 diabetes mellitus Current Visit: Yes Status: Resolved - Time Spent with Patient Total time spent is greater than 50% in coordination of care (as documented) at patient's floor/unit and/or counseling patient: Internal Medicine: Result - Labs CBC & Chem 7: 08/20/18 06:56 08/20/18 06:56 Labs: Short CBC 08/19/18 08/20/18 Range/Units 16:11 06:56 WBC 8.5 10.1 (4.3-11.1) K/mcL Hgb 8.7 L 8.9 L (11.5-15.4) g/dL Hct 28.6 L 28.2 L (35.3-44.9) % Plt Count 216 258 (140-400) K/mcL BMP 08/20/18 06:56 Sodium 132 L Potassium 4.5 Chloride 104 Carbon Dioxide 22 L BUN 14 Creatinine 1.07 Glucose 235 H Calcium 8.6 Consult Discharge Plan - Plan Referrals: Leonard Trinidad MD [Primary Care Provider] - - Attending Attestation I examined this patient and my medical decision-making was reviewed with the Resident Physician on 08/20/18. I agree with the documented findings, disposition and treatment plan as described except to the extent set forth below. Ms Casper is currently admitted for cellulitis L hand from cat bite/scratch. She has had issues with her blood sugar. She remains moderate to high risk due to potential for worsening clinical status. Ms Casper had a tough night last night. Her blood sugar was on lower side and she was up going to bathroom. She will not take her Lasix this AM. She does not want to have to get up and pee. She is more SOB with movement today. No CP. No abd pain. Hand feels OK. No fever or chills. Exam alert Mild dyspnea at rest Mucus membranes moist Heart not tachy No wheeze Normocephalic Moves all extremities. I/P 1. Cellulitis - change to PO abx. Continue local wound care 2. DM - sugars very variable. Appears her diet at home is not the best. Insulin adjusted. 3. Dyspnea - most likely because she has not been taking Lasix. Encouraged to take it during the day. She is weaker today. Took 2 people to get her up. Will ask PT/OT to see her. Further diagnoses and plan as above. <Quincy Howell - Last Filed: 08/20/18 18:36> Hospitalist Progress Note - Encounter Date of Encounter: 08/20/18 Time of Encounter: 07:55 - Subjective Interval History: Patient was seen and examined at bedside this morning. She states she is doing overall better this morning. However she did have a hypoglycemic event overnight. Upon further investigation, patient is noncompliant with a diabetic diet at home and frequently eats mashed potatoes ice cream. She states his hand continues to do well with no pain, swelling, erythema, fevers, chills. She is otherwise asymptomatic at this time. - Exam Vitals: Temp Pulse Resp BP Pulse Ox 98.5 F 86 22 102/68 95 08/20/18 06:58 08/20/18 06:58 08/20/18 06:58 08/20/18 06:58 08/20/18 06:58 Exam: Gen.: Vitals noted. No acute distress. AAOx3, resting comfortably in bed. Appears anxious and disheveled this morning HEENT: PERRL/EOMI, oropharynx clear, Normocephalic, atraumatic, MMM Cardiac: RRR, subtle systolic murmur, +S1/S2, 3+ pitting BLE edema Pulmonary: CTA bilaterally, no wheezes, rales or rhonchi, equal chest expansion, unlabored breathing Abdomen: soft, nontender, BS noted, no guarding, no palpable HSM Skin: warm and dry, left hand wrapped with no evidence of surrounding erythema, edema, drainage. No proximal spreading. Distal pulses and sensation intact. MSK: ROM intact, no joint swelling noted, gait no assessed while in bed. Non tender calf or clubbing Neuro: A&Ox3, moves all extremities, no focal deficits, sensation intact Psych: Appropriate mood and behavior, AOx3 - Assessment and Plan (1) Cat scratch of hand Current Visit: Yes Status: Acute Assessment and Plan: - Patient reports cat scratch on her left hand on 08/06/18 - Patient did not complete a ten-day course of doxycycline as prescribed by urgent care - Despite antibiotic course, patient reports continued erythema, swelling, purulent drainage - Patient will require IV antibiotics. Started on Unasyn and one dose vancomycin - Orthopedics was consulted and will see the patient in the morning. - X-ray of the left hand shows soft tissue swelling as well as osteoarthropathy - Sensation, distal pulses intact. No axillary lymphadenopathy. No concerns at this time for deep-seated infection - Preliminary cultures included negative blood cultures on 08/17/18 negative for growth 2 - Wound culture from left hand pulmonary shows final no growth on 08/18/18 Plan - Continue antibiotics day #4, will de-escalate to by mouth Augmentin from IV Unasyn, vancomycin, azithromycin. - We will obtain wound and blood cultures, de-escalate antibiotics as appropriate - Consult orthopedic, appreciate recommendations- no plans for surgical intervention at this time - We will continue monitor for further need of imaging including CT to rule out abscess however patient has full range of motion and no deficits at this time. - Anticipate the patient became be able for discharge tomorrow if she continues to do well. (2) Cellulitis Current Visit: Yes Status: Acute Assessment and Plan: As above (3) Pulmonary fibrosis Current Visit: Yes Status: Chronic Assessment and Plan: - Patient reports a chronic history of pulmonary fibrosis - Patient reports when necessary oxygen use at home - We will continue PRN oxygen while inpatient - Continue management as outpatient (4) Anemia Current Visit: Yes Status: Chronic Assessment and Plan: - H/H on presentation of 9.2/29.2, stable at hgb 8.9 most recently - Baseline hemoglobin appears to be between 10 and 12 - Patient is asymptomatic, no indications for transfusion - We will continue to monitor at this time (5) Diabetes Current Visit: Yes Status: Chronic Assessment and Plan: - Patient reports excellent control - BS on admission elevated at 220, may be elevated secondary to infection - Became hypoglycemic at night with blood sugar in the 40s and 60s. Thought to be secondary to home insulin regimen with new diabetic diet We will continue decreased basal insulin from 34 units to 20 units daily at bedtime - We will also decrease before meals at bedtime insulin - SSI - We will advance to regular diet, mechanical soft (6) DVT prophylaxis Current Visit: Yes Status: Acute Assessment and Plan: Subcutaneous heparin - Time Spent with Patient Total time spent is greater than 50% in coordination of care (as documented) at patient's floor/unit and/or counseling patient: Internal Medicine: Result - Labs CBC & Chem 7: 08/20/18 06:56 08/20/18 06:56 Labs: Short CBC 08/19/18 Range/Units 16:11 WBC 8.5 (4.3-11.1) K/mcL Hgb 8.7 L (11.5-15.4) g/dL Hct 28.6 L (35.3-44.9) % Plt Count 216 (140-400) K/mcL <Tommy Bennett - Last Filed: 08/20/18 15:30> (1) Cellulitis Qualifiers: Site of cellulitis: extremity Site of cellulitis of extremity: upper extremity Laterality: left Qualified Code(s): L03.114 - Cellulitis of left upper limb (2) Cat bite Qualifiers: Encounter type: subsequent encounter Qualified Code(s): W55.01XD - Bitten by cat, subsequent encounter (3) Cat scratch of hand Qualifiers: Encounter type: subsequent encounter Laterality: left Qualified Code(s): S60.512D - Abrasion of left hand, subsequent encounter; W55.03XD - Scratched by cat, subsequent encounter (4) Diabetes Qualifiers: Diabetes mellitus type: type 2 Diabetes mellitus halfway insulin use: with halfway use Diabetes mellitus complication status: with hyperglycemia Qualified Code(s): E11.65 - Type 2 diabetes mellitus with hyperglycemia; Z79.4 - taxation consultant (current) use of insulin <Quincy Howell - Last Filed: 08/20/18 18:36> (1) Cat scratch of hand Qualifiers: Encounter type: subsequent encounter Laterality: left Qualified Code(s): S60.512D - Abrasion of left hand, subsequent encounter; W55.03XD - Scratched by cat, subsequent encounter (2) Cellulitis Qualifiers: Site of cellulitis: extremity Site of cellulitis of extremity: upper extremity Laterality: left Qualified Code(s): L03.114 - Cellulitis of left upper limb (4) Anemia Qualifiers: Anemia type: iron deficiency Iron deficiency anemia type: unspecified iron deficiency Qualified Code(s): D50.9 - Iron deficiency anemia, unspecified (5) Diabetes Qualifiers: Diabetes mellitus type: type 2 Diabetes mellitus halfway insulin use: with halfway use Diabetes mellitus complication status: with hyperglycemia Qualified Code(s): E11.65 - Type 2 diabetes mellitus with hyperglycemia; Z79.4 - taxation consultant (current) use of insulin
[2018-08-20 07:51] LABS: Hematocrit 28.2 % (35.3-44.9); Hemoglobin 8.9 g/dL (11.5-15.4); Mean Corpuscular HGB Conc 31.6 g/dL (31.6-35.5); Mean Corpuscular Hemoglobin 28.3 pg (28.0-33.3); Mean Corpuscular Volume 89.8 fL (83.0-100.0); Mean Platelet Volume 10.1 fL (9.4-12.4); Platelet Count 258 K/mcL (140-400); Red Blood Count 3.14 M/mcL (3.82-4.97); Red Cell Distribution Width 15.1 % (11.5-14.5)
[2018-08-20] MEDS: Acetaminophen 325 MG TABLET PO PRN (07:51)
[2018-08-20] MEDS: Furosemide 40 MG TABLET PO SCH ×2 (07:51→16:41)
[2018-08-20] MEDS: Insulin LISPRO 300 UNITS/3 ML VIAL SQ SCH ×5 (07:52→21:08)
[2018-08-20 07:57] LABS: BUN/Creatinine Ratio 13 (6-26); Blood Urea Nitrogen 14 mg/dL (8-23); Calcium 8.6 mg/dL (8.6-10.3); Carbon Dioxide 22 mEq/L (23-29); Chloride 104 mEq/L (98-107); Glucose 235 mg/dL (70-105); Osmolality,Calculated 282 (280-300); Potassium 4.5 mEq/L (3.5-5.1); Sodium 132 mEq/L (136-145); eGFR For Non-African Americans 50 (> 60)
[2018-08-20] MEDS: Gabapentin 100 MG CAPSULE PO SCH (21:07)
[2018-08-20] MEDS: Insulin DETEMIR 100 UNIT/ML X5UNITS SQ SCH (21:08)
[2018-08-21] MEDS: *HR* Heparin 5,000 UNIT/ML VIAL SQ SCH (05:50)
[2018-08-21] MEDS: Insulin LISPRO 300 UNITS/3 ML VIAL SQ SCH ×2 (08:14→11:52)
[2018-08-21 08:18] LABS: Hematocrit 28.4 % (35.3-44.9); Hemoglobin 9.1 g/dL (11.5-15.4); Mean Corpuscular Hemoglobin 28.3 pg (28.0-33.3); Mean Corpuscular Volume 88.2 fL (83.0-100.0); Mean Platelet Volume 9.8 fL (9.4-12.4); Platelet Count 280 K/mcL (140-400); Red Blood Count 3.22 M/mcL (3.82-4.97); Red Cell Distribution Width 14.9 % (11.5-14.5)
[2018-08-21 08:37] LABS: BUN/Creatinine Ratio 14 (6-26); Blood Urea Nitrogen 15 mg/dL (8-23); Calcium 9.1 mg/dL (8.6-10.3); Carbon Dioxide 22 mEq/L (23-29); Chloride 107 mEq/L (98-107); Glucose 185 mg/dL (70-105); Osmolality,Calculated 288 (280-300); Potassium 4.2 mEq/L (3.5-5.1); Sodium 136 mEq/L (136-145); eGFR For Non-African Americans 50 (> 60)
[2018-08-21] MEDS: Furosemide 40 MG TABLET PO SCH (09:03)
[2018-08-21 10:19] VITALS: BP 128/71
--- NOTE | 2018-08-21 12:14 | Discharge Summary ---
<Sandi Valiente - Last Filed: 08/21/18 12:33> Orders not resulted at time of discharge: Pending orders 08/17/18 16:00 Culture,Blood [BC] Stat Date of Encounter: 08/21/18 - Discharge Diagnosis (1) Cat bite Status: Acute Qualifiers: Encounter type: subsequent encounter Qualified Code(s): W55.01XD - Bitten by cat, subsequent encounter (2) Cellulitis Status: Acute Qualifiers: Site of cellulitis: extremity Site of cellulitis of extremity: upper extremity Laterality: left Qualified Code(s): L03.114 - Cellulitis of left upper limb (3) Cat scratch of hand Status: Acute Qualifiers: Encounter type: subsequent encounter Laterality: left Qualified Code(s): S60.512D - Abrasion of left hand, subsequent encounter; W55.03XD - Scratched by cat, subsequent encounter (4) Diabetes Status: Chronic Qualifiers: Diabetes mellitus type: type 2 Diabetes mellitus half-way insulin use: with half-way use Diabetes mellitus complication status: with hyperglycemia Qualified Code(s): E11.65 - Type 2 diabetes mellitus with hyperglycemia; Z79.4 - [facility] (current) use of insulin (5) Hypoglycemia associated with type 2 diabetes mellitus Status: Resolved Hospital course: Ms. Casper is a 77 year old female - Time Spent with Patient Total time spent providing and/or coordinating discharge services: Greater than 30 minutes (40 min) - Discharge Medications Prescriptions: Amoxicillin/Clavulanate [Augmentin] 875 mg PO BIDWM #6 tablet Amoxicillin/Clavulanate [Augmentin] 875 mg PO BID #12 tablet Home Medications: Furosemide [Lasix] 40 mg PO BID 08/18/18 [History] Gabapentin [Neurontin] 100 mg PO HS 08/18/18 [History] Insulin LISPRO [Humalog Kwikpen U-100] 0 unit SQ AD 08/18/18 [History] Insulin LISPRO [Humalog Kwikpen U-100] 5 unit SQ TIDWM 08/18/18 [History] Losartan [Cozaar] 25 mg PO DAILY 08/18/18 [History] Oxybutynin [Ditropan] 5 mg PO BID 08/18/18 [History] Pantoprazole Sodium [Protonix] 40 mg PO DAILY 08/18/18 [History] Simvastatin [Zocor] 20 mg PO HS 08/18/18 [History] Amoxicillin/Clavulanate [Augmentin] 875 mg PO BID #12 tablet 08/21/18 [Rx] Amoxicillin/Clavulanate [Augmentin] 875 mg PO BIDWM #6 tablet 08/21/18 [Rx] Insulin Glargine,Hum.rec.anlog [Basaglar Kwikpen U-100] 20 unit SQ HS #0 08/21/18 [Rx] Allergies/Adverse Reactions: Allergy/AdvReac Type Severity Reaction Status Date / Time lisinopril AdvReac Cough Verified 06/08/15 08:14 Date of admission: 08/17/18 19:14 Primary care physician: Leonard Trinidad MD Consults: 08/17/18 18:00 Consult to Orthopedic Surgery [CONS] Routine Consulting Provider: Valeriano Coelho Reason for Consult: cat scratch left hand Call Completed: Yes 08/17/18 20:17 Consult to Pastoral Services [CONS] Routine Comment: Patient request 08/20/18 09:39 Consult to Physical Therapy [CONS] Routine Comment: Evaluate, develop and implement POC Reason for Consult: discharge planning Does patient have active BEDREST order?: No Is patient medically & hemodynamically stable?: Yes Patient assessed for mobility or mobilized this visit?: No 08/21/18 08:13 Consult to Loan Servicing Specialist [CONS] Routine Reason for SW Consult: PT/OT recommending home health - Constitutional Vitals: Temp Pulse Resp BP Pulse Ox 97.6 F 84 20 128/71 95 08/21/18 10:18 08/21/18 10:18 08/21/18 10:18 08/21/18 10:18 08/21/18 10:18 - Patient Status Disposition: Home, Self-Care Condition: Good - Discharge Instructions Instructions: Amoxicillin/Clavulanate Potassium (By mouth), Animal Bite (DC), Cellulitis (DC) Follow Up With: Leonard Trinidad MD [Primary Care Provider] - 08/26/18 1:15 pm Valeriano Coelho, DO [Non-Partnered Physician] - (Follow up with Dr. Coelho as needed. Thank you) Additional Instructions: A referral for outpatient therapy has been sent to [facility]. They are going to call you to set up your first outpatient physical therapy appointment. Address: [address] [place] [address] Dr. Hernandez, [place]. - Attending Attestation I examined this patient and my medical decision-making was reviewed with the Resident Physician Lynda. I agree with the documented findings, disposition and treatment plan as described except to the extent set forth below. Ms Casper is currently admitted for cellulitis L hand from cat bite/scratch. She has had issues with her blood sugar. She is now medically stable for dc to home. awake, pleasant and feeling much better. mild itching of the left hand, no fevers, chills, n/v. she will do outpt pt/ot upon dc. discussed dc plan and answered all questions. gen- alert, awake,appears stated age eyes- pupils equal round cv- reg rate and rhythm, normal s1,s2, no murmurs appreciated lungs- ctabl, normal resp effort on room air skin- left hand dressing c/d/i, no surrounding erythema neuro- AAOx3 1. Cellulitis - cont augmentin at dc, fu with pcp 2. DM - sugars very variable, had been hypoglycemic on home regimen and diet. Insulin adjusted this admit as was diet with education regarding home diet and bs control, dc on reduced dose of home lantus, + home meal time and SSI, fu with pcp for further adjustments outpt 3. Dyspnea - resolved, cont home lasix pt/ot rec for outpt services, in place Further diagnoses and plan as noted by resident dc to home time spent on discharge 40 min <Quinyc Howell - Last Filed: 08/21/18 19:27> - NOTES TO OUTPATIENT PROVIDER Notes to Outpatient Provider: Patient admitted for cellulitis secondary to cat scratch. Discharged on 10 day course of antibiotics. Orders not resulted at time of discharge: Pending orders 08/17/18 16:00 Culture,Blood [BC] Stat Date of Encounter: 08/21/18 Time of Encounter: 09:30 - Discharge Diagnosis (1) Cat scratch of hand Priority: Primary Status: Acute Qualifiers: Encounter type: subsequent encounter Laterality: left Qualified Code(s): S60.512D - Abrasion of left hand, subsequent encounter; W55.03XD - Scratched by cat, subsequent encounter (2) Cellulitis Priority: Secondary Status: Acute Qualifiers: Site of cellulitis: extremity Site of cellulitis of extremity: upper extremity Laterality: left Qualified Code(s): L03.114 - Cellulitis of left upper limb (3) Pulmonary fibrosis Priority: Secondary Status: Chronic (4) Anemia Priority: Secondary Status: Chronic Qualifiers: Anemia type: iron deficiency Iron deficiency anemia type: unspecified iron deficiency Qualified Code(s): D50.9 - Iron deficiency anemia, unspecified (5) Diabetes Priority: Secondary Status: Chronic Qualifiers: Diabetes mellitus type: type 2 Diabetes 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 Casper is a 77 year old female with a PMHx of DM, pulmonary HTN who presented to the ED with a complaint of erythema, swelling, purulent discharge from her hand following a cat scratch. She had failed outpatient doxycycline for a 10 day course prior to arrival and states that it helped some but still noted purulence. On admission she was not septic and did not have any leukocytosis. Xray of the hand in the ED showed soft tissue swelling without bone or deep tissue involvement. Orthopedics did evaluate the patient, and did not anticipate a need for surgical intervention. She was treated with empiric antibiotics including vancomycin, unasyn, and azithromycin. Blood and wound cultures showed no growth. She continued to do well and was transitioned to oral augmentin for discharge. She will be treated for a total of 10 days. She did have multiple episodes of hypoglycemia during admission in the store shopper which resolved with decrease in home insulin as well as resuming her home diet and rescinding a diabetic diet. She will have her home basal insulin decreased to 20 units until she sees her PCP. PT/OT did recommend HH however patient elected to get outpatient PT which was set up through social work. She will be discharged home in stable medical condition. Discharge discussed with: patient, social work, case management - Time Spent with Patient Total time spent providing and/or coordinating discharge services: Date of admission: 08/17/18 19:14 Primary care physician: Leonard Trinidad MD Consults: 08/17/18 18:00 Consult to Orthopedic Surgery [CONS] Routine Consulting Provider: Valeriano Coelho Reason for Consult: cat scratch left hand Call Completed: Yes 08/17/18 20:17 Consult to Pastoral Services [CONS] Routine Comment: Patient request 08/20/18 09:39 Consult to Physical Therapy [CONS] Routine Comment: Evaluate, develop and implement POC Reason for Consult: discharge planning Does patient have active BEDREST order?: No Is patient medically & hemodynamically stable?: Yes Patient assessed for mobility or mobilized this visit?: No 08/21/18 08:13 Consult to Loan Servicing Specialist [CONS] Routine Reason for SW Consult: PT/OT recommending home health Discharging clinician: Quincy Howell Anticipated date of discharge: 08/21/18 - Constitutional Vitals: Temp Pulse Resp BP Pulse Ox 97.6 F 84 20 128/71 95 08/21/18 10:18 08/21/18 10:18 08/21/18 10:18 08/21/18 10:18 08/21/18 10:18 Exam: Gen.: Vitals noted. No acute distress. AAOx3, resting comfortably in bed. HEENT: PERRL/EOMI, oropharynx clear, Normocephalic, atraumatic, MMM Cardiac: RRR, subtle systolic murmur, +S1/S2, 2+ pitting BLE edema Pulmonary: CTA bilaterally, no wheezes, rales or rhonchi, equal chest expansion, unlabored breathing Abdomen: soft, nontender, BS noted, no guarding, no palpable HSM Skin: warm and dry, left hand wrapped with no evidence of surrounding erythema, edema, drainage. No proximal spreading. Distal pulses and sensation intact. MSK: ROM intact, no joint swelling noted, gait no assessed while in bed. Non tender calf or clubbing Neuro: A&Ox3, moves all extremities, no focal deficits, sensation intact Psych: Appropriate mood and behavior, AOx3 - Patient Status Functional capacity at discharge: independent ambulation Overall status at discharge: patient is progressing back to baseline - Diet and Activity Activity: increase activity as tolerated, return to work once cleared by your PCP/specialist, resume usual activities as tolerated Diet: advance to your usual diet
== END 2018-08-21 15:46 | disposition home or self-care (01) | DRG 603 ==
LOC: EMEROOARM 15:01 → 3ANU 19:14 → SUATTDRO 19:14 → 3ANU 19:48
PROVIDERS: ADMIT Internal Medicine; ATTEND Internal Medicine